=== PATIENT | male | born 1990 | race Caucasian/White ===

== ENCOUNTER 2019-06-13 02:05 | Emergency (ER) | payer OTHER ==
--- NOTE | 2019-06-13 02:47 | EDM.PDOC ---
ED HPI GENERAL MEDICAL PROBLEM - General Chief Complaint: Drug or Alcohol Abuse Stated Complaint: [facility] Time Seen by Provider: 06/13/19 02:08 Source of Information: Reports: EMS History Limitations: Reports: Intoxication - History of Present Illness INITIAL COMMENTS - FREE TEXT/NARRATIVE: TRIAGE NOTE -- pt came by ems, found dry heaving unresponsive and extrememly intoxicated. having episodes of unresponsiveness in ED with very shallow breathing, no response to sternal rub, moved to TR2. pt wrote sister Aubrie's number down to get information from. sister called for PMH and allergies. [ End ] No other focused history is available at this time. - Related Data Allergies Allergy/AdvReac Type Severity Reaction Status Date / Time amoxicillin Allergy Cannot Verified 06/13/19 02:08 Remember diltiazem Allergy Other Verified 06/13/19 02:27 hydrocodone Allergy Vomiting Verified 06/13/19 02:08 oxycodone Allergy Vomiting Verified 06/13/19 02:08 Home Meds: Home Meds clonazePAM [Klonopin] 1 mg PO DAILY #3 tablet 06/13/19 [Rx] Past Medical History Genitourinary History: Reports: Acute Renal Failure Other Genitourinary History: on dialysis to correct, 8 yrs ago Psychiatric History: Reports: Anxiety Social & Family History - Tobacco Use Smoking Status *Q: Unknown Ever Smoked ED ROS GENERAL - Review of Systems Review Of Systems: Unable To Obtain Reason Not Obtained: SEVERELY INTOXICATED - Physical Exam Exam: See Below Exam Limited By: Intoxication General Appearance: Obtunded Ears: Normal External Exam Nose: Normal Inspection Throat/Mouth: Normal Lips Head Exam: Atraumatic, Normocephalic Neck: Supple Respiratory/Chest: Other (Respirations, upper airway noise heard) Cardiovascular: Regular Rate, Rhythm GI/Abdominal: Soft Neuro Exam (Abbreviated): Other (Obtunded, no obvious focality) Back Exam: Normal Inspection Extremities: Normal Inspection Skin Exam: Warm, Dry Course - Vital Signs Last Recorded V/S: Last Vital Signs Temp 36.2 C 06/13/19 02:11 Pulse 93 06/13/19 02:11 Resp 16 06/13/19 02:11 BP Pulse Ox 100 06/13/19 02:11 - Orders/Labs/Meds Orders: Active Orders 24 hr Category Date Time Status EKG Documentation Completion [RC] STAT Care 06/13/19 02:48 Active Chest 1V Frontal [CR] Stat Exams 06/13/19 02:48 Taken DRUG SCREEN, URINE [URCHEM] Stat Lab 06/13/19 02:48 Ordered UA RFX URMILA AND CULT IF INDIC [URIN] Stat Lab 06/13/19 02:49 Ordered Sodium Chloride 0.9% [Normal Saline] 1,000 ml Med 06/13/19 04:00 Active IV ASDIRECTED Medication Orders Sodium Chloride (Normal Saline) 1,000 mls @ 150 mls/hr IV ASDIRECTED COSTA Last Admin: 06/13/19 04:08 Dose: 150 mls/hr Labs: Laboratory Tests 06/13/19 06/13/19 Range/Units 02:19 02:19 WBC 8.35 (4.23-9.07) K/mm3 RBC 5.46 (4.63-6.08) M/mm3 Hgb 15.6 (13.7-17.5) gm/dl Hct 46.0 (40.1-51.0) % MCV 84.2 (79.0-92.2) fl MCH 28.6 (25.7-32.2) pg MCHC 33.9 (32.2-35.5) g/dl RDW Std Deviation 42.9 (35.1-43.9) fL Plt Count 252 (163-337) K/mm3 MPV 10.4 (9.4-12.3) fl Neut % (Auto) 44.9 (34.0-67.9) % Lymph % (Auto) 41.2 (21.8-53.1) % Roosevelt % (Auto) 7.9 (5.3-12.2) % Eos % (Auto) 5.0 (0.8-7.0) Baso % (Auto) 0.6 (0.1-1.2) % Neut # (Auto) 3.75 (1.78-5.38) K/mm3 Lymph # (Auto) 3.44 (1.32-3.57) K/mm3 Roosevelt # (Auto) 0.66 (0.30-0.82) K/mm3 Eos # (Auto) 0.42 (0.04-0.54) K/mm3 Baso # (Auto) 0.05 (0.01-0.08) K/mm3 Sodium 147 H (136-145) mEq/L Potassium 3.2 L (3.5-5.1) mEq/L Chloride 109 H (98-107) mEq/L Carbon Dioxide 26 (21-32) mEq/L Anion Gap 15.2 H (5-15) BUN 13 (7-18) mg/dL Creatinine 1.2 (0.7-1.3) mg/dL Est Cr Clr Drug Dosing 84.92 mL/min Estimated GFR (MDRD) > 60 (>60) mL/min BUN/Creatinine Ratio 10.8 L (14-18) Glucose 124 H (74-106) mg/dL Calcium 8.9 (8.5-10.1) mg/dL Magnesium 2.4 (1.8-2.4) mg/dl Total Bilirubin 0.2 (0.2-1.0) mg/dL AST 17 (15-37) U/L ALT 26 (16-63) U/L Alkaline Phosphatase 93 (46-116) U/L Total Protein 7.9 (6.4-8.2) g/dl Albumin 4.8 (3.4-5.0) g/dl Globulin 3.1 gm/dL Albumin/Globulin Ratio 1.6 (1-2) Ethyl Alcohol 0.24 (0.00) gm% Meds: Medications Generic Name Dose Route Start Last Admin Trade Name Freq PRN Reason Stop Dose Admin Sodium Chloride 1,000 mls @ 150 mls/hr 06/13/19 04:00 06/13/19 04:08 Normal Saline IV 150 mls/hr ASDIRECTED COSTA Administration Discontinued Medications Generic Name Dose Route Start Last Admin Trade Name Freq PRN Reason Stop Dose Admin Sodium Chloride 1,000 mls @ 1,000 mls/hr 06/13/19 02:50 06/13/19 02:54 Normal Saline IV 06/13/19 03:49 1,000 mls/hr ONETIME ONE Administration Sodium Chloride Confirm 06/13/19 04:01 06/13/19 04:08 Normal Saline Administered 06/13/19 04:02 Not Given Dose 1,000 mls @ as directed .ROUTE .STK-MED ONE - Re-Assessments/Exams Free Text/Narrative Re-Assessment/Exam: 06/13/19 06:13 During the course of the encounter the patient has equilibrated and done well. Because of the initial concern of respiratory compromise she was moved to the trauma room and observe closely. His oxygenation and respiratory function stabilized and he is in the mid to high 90s on room air at this point. The patient's mother and significant other are at bedside. I am assured that this episode of intoxication was isolated and that he does not abuse alcohol to this extent on a regular basis. In any event we will give him a p.o. Klonopin prior to discharge and a prescription for 3 Klonopin's to take 1 daily for the next 3 days. The patient will be mobilized and discharged home to the care of his family. Departure - Departure Time of Disposition: 06:15 Disposition: Home, Self-Care 01 Condition: Good Clinical Impression: Alcohol intoxication Qualifiers: Complication of substance-induced condition: uncomplicated Qualified Code(s): F10.920 - Alcohol use, unspecified with intoxication, uncomplicated - Discharge Information Prescriptions: clonazePAM [Klonopin] 1 mg PO DAILY #3 tablet Additional Instructions: You were brought to the emergency department with a dangerously high alcohol level. Your condition on arrival was life-threatening. Fortunately with supportive care you equilibrated and are stable at discharge. We are assured that this was an isolated episode of intoxication. In any event we are giving you a medication to take (Klonopin) prior to discharge as well is 3 to take daily for 3 days after discharge to prevent ill effects of withdrawal from alcohol. Should there be a recognized pattern of regular alcohol abuse and a desire for rehab the ER will be happy to facilitate that on your behalf. It is recommended that you have close follow-up with your primary physician. For any concern return to the emergency department right away. Sepsis Event Note - Evaluation Sepsis Screening Result: No Definite Risk - Focused Exam Vital Signs: Vital Signs Temp Pulse Resp Pulse Ox 06/13/19 02:11 36.2 C 93 16 100 Date Exam was Performed: 06/13/19 Time Exam was Performed: 06:13 - My Orders Last 24 Hours: My Active Orders 06/13/19 02:48 EKG Documentation Completion [RC] STAT Chest 1V Frontal [CR] Stat DRUG SCREEN, URINE [URCHEM] Stat 06/13/19 02:49 UA RFX URMILA AND CULT IF INDIC [URIN] Stat 06/13/19 04:00 Sodium Chloride 0.9% [Normal Saline] 1,000 ml IV ASDIRECTED - Assessment/Plan Last 24 Hours: My Active Orders 06/13/19 02:48 EKG Documentation Completion [RC] STAT Chest 1V Frontal [CR] Stat DRUG SCREEN, URINE [URCHEM] Stat 06/13/19 02:49 UA RFX URMILA AND CULT IF INDIC [URIN] Stat 06/13/19 04:00 Sodium Chloride 0.9% [Normal Saline] 1,000 ml IV ASDIRECTED
[2019-06-13] MEDS ORDERED: Sodium Chloride 0.9% 1,000 ML IV ONE (02:50)
[2019-06-13] MEDS ORDERED: Sodium Chloride 0.9% 1,000 ML IV SCH (04:00)
[2019-06-13] MEDS ORDERED: Sodium Chloride 0.9% 1,000 ML ONE (04:01)
[2019-06-13] MEDS ORDERED: ClonazePAM 1 MG Tab PO SCH (06:30)
--- NOTE | 2019-06-14 07:16 | CR ---
Chest: Portable view of the chest was obtained. Comparison: No prior chest imaging. Heart size and mediastinum are normal. Lungs are clear with no acute parenchymal change. Scoliosis is present within the spine. Impression: 1. Nothing acute is seen on portable chest x-ray. Diagnostic code #2 This report was dictated in [place] Standard Time
== END 2019-06-13 07:04 | disposition home or self-care (01) ==
LOC: JD.ED 02:05
DX: F10.120 Alcohol abuse with intoxication, uncomplicated (principal); Y90.0 Blood alcohol level of less than 20 mg/100 ml; F41.9 Anxiety disorder, unspecified; Z88.1 Allergy status to other antibiotic agents; Z88.5 Allergy status to narcotic agent; Z79.899 Other long term (current) drug therapy
CPT/HCPCS: 36415; 71045; 80053; 80320; 83735; 85025; 93005; 96360; 96361; 99285; A9270; J7030; 93010; 99283; G0480